=== PATIENT | female | born 1990 | race Caucasian/White ===

== ENCOUNTER 2017-11-09 14:35 | Emergency (ER) | payer MEDICAID ==
[~2017-11-09] VITALS: Ht 172.7 cm; Wt 92.7 kg
[2017-11-09 14:42] VITALS: Ht 172.7 cm; Wt 92.7 kg
[2017-11-09] MEDS ORDERED: TIROSINT88 MCG PO (14:43)
[2017-11-09] MEDS ORDERED: TORADOL10 MG PO (18:14)
[2017-11-09 18:25] VITALS: BP 105/76
== END 2017-11-09 18:26 | disposition home or self-care (01) ==
LOC: D.ER 14:35
DX: S61.216A Laceration without foreign body of right little finger without damage to nail, initial encounter (principal); W25.XXXA Contact with sharp glass, initial encounter; Y93.89 Activity, other specified; Y92.019 Unspecified place in single-family (private) house as the place of occurrence of the external cause; E07.9 Disorder of thyroid, unspecified; F17.200 Nicotine dependence, unspecified, uncomplicated